=== PATIENT | female | born 1970 | race African-American/Black ===

== ENCOUNTER 2016-07-14 16:05 | Emergency (ER) | payer OTHER ==
[~2016-07-14] VITALS: Ht 162.6 cm; Wt 63.5 kg
[~2016-07-14 16:05] MED LIST: ALPRAZOLAM PO; AMOXICILLIN 50500 M1 PO; APAP/CODEI12 MG/5 ML PO; BACTRIM DS TAB1 EACH PO; CELEXA 20 MG TA20 M1 PO; CIPROFLOXACIN500 M1 PO; CLONAZEPAM 1 MG1 M1 PO; CLONAZEPAM PO; DESYREL50 MG; FLAGYL500 MG PO; FLEXERIL PO; FLONASE16 GM; HYCET 7.5 MG-3473 ML PO; HYDROCORTISONE TP; IBUPROFEN 600600 M1 PO; IBUPROFEN 800800 MG PO; LAMICTAL XR50 MG PO; LAMOTRIGINE100 MG PO; LATUDA40 MG PO; MUCINEX600 MG PO; NORCO 5-325 TA1 EACH PO; NORCO 7.5-3251 EACH PO; PHENERGAN 25 MG25 M1 PO; PREDNISONE50 MG PO; PROAIR HFA8.5 GM IH; PROVENTIL HFA6.7 G1 INH; REMERON; REMERON45 MG PO; RISPERDAL PO; RISPERDAL0.5 MG PO; SEROQUEL; TRAMADOL 50 MG50 MG PO; TRAZODONE 50 MG50 M1 OR; ULTRAM 50MG TAB50 MG PO; XANAX 0.5 MG0.5 MG PO; XANAX XR1 MG PO; ZPAK PO
[2016-07-14 16:40] LABS: URINE BILIRUBIN NEGATIVE (Negative); URINE BLOOD 1+ (Negative); URINE COLOR YELLOW; URINE GLUCOSE-RANDOM* NEGATIVE (Negative); URINE KETONES NEGATIVE (Negative); URINE LEUKOCYTES-REFLEX NEGATIVE (Negative); URINE PROTEIN (DIPSTICK) NEGATIVE (Negative); URINE UROBILINOGEN 0.2 E.U./dl (0.2-1.0)
[2016-07-14 16:47] LABS: CASTS None Seen /LPF (None Seen); CRYSTALS None Seen /LPF (None Seen); SQUAMOUS 4-10 Moderate /LPF (0-3); URINE RBC 3-10 Few /HPF (0-2); URINE WBC-REFLEX None Seen /HPF (0-5)
[2016-07-14 16:54] LABS: ABSOLUTE NEUTROPHILS 6.4 thou/uL (1.4-8.2); BASOPHILS 1.7 % (0.0-2.0); EOSINOPHILS 2.7 % (0.0-3.0); HEMATOCRIT 38.1 % (37.0-47.0); HEMOGLOBIN 12.8 gm/dL (12.0-15.0); LYMPHOCYTES 42.3 % (24.0-44.0); MCH 29.1 pg (26.0-34.0); MCHC 33.5 g/dL (28.0-37.0); MCV 86.9 fL (80.0-100.0); MONOCYTES 5.1 % (1.0-8.0); PLATELET COUNT 332 thou/uL (150-400); POLYS 48.2 % (36.0-66.0); RBC 4.39 mil/uL (4.20-5.00); WBC 13.3 thou/uL (4.0-11.0)
[2016-07-14 16:59] LABS: MANUAL DIFF NO
[2016-07-14 17:04] LABS: CALCIUM 8.8 mg/dL (8.5-10.1); CREATININE 0.8 mg/dL (0.6-1.0); POTASSIUM 3.8 mmol/L (3.5-5.1)
[2016-07-15 16:08] LABS: CHLAMYDIA TRACHOMATIS-PCR Negative (Negative); NEISSERIA GONORRHEA-PCR Negative (Negative)
== END 2016-07-14 18:35 | disposition home or self-care (01) ==
LOC: ER 16:05
PROVIDERS: Nurse Practitioner Family
DX: N30.10 Interstitial cystitis (chronic) without hematuria (principal); J45.909 Unspecified asthma, uncomplicated; F31.9 Bipolar disorder, unspecified; F17.210 Nicotine dependence, cigarettes, uncomplicated; Z90.89 Acquired absence of other organs; Z90.710 Acquired absence of both cervix and uterus; Z90.49 Acquired absence of other specified parts of digestive tract; Z88.6 Allergy status to analgesic agent

== ENCOUNTER 2016-09-05 12:43 | Emergency (ER) | payer OTHER ==
[~2016-09-05] VITALS: Ht 160 cm; Wt 65.8 kg
[2016-09-05 13:12] LABS: URINE BILIRUBIN NEGATIVE (Negative); URINE BLOOD 1+ (Negative); URINE COLOR YELLOW; URINE GLUCOSE-RANDOM* NEGATIVE (Negative); URINE KETONES NEGATIVE (Negative); URINE NITRITE NEGATIVE (Negative); URINE PROTEIN (DIPSTICK) NEGATIVE (Negative); URINE SPECIFIC GRAVITY 1.025 (1.003-1.035); URINE UROBILINOGEN 0.2 E.U./dl (0.2-1.0)
[2016-09-05 13:18] LABS: BACTERIA >30 Many /HPF (None Seen); CASTS None Seen /LPF (None Seen); CRYSTALS None Seen /LPF (None Seen); SQUAMOUS 4-10 Moderate /LPF (0-3); URINE RBC 3-10 Few /HPF (0-2); URINE WBC None Seen /HPF (0-5)
[2016-09-05] MEDS ORDERED: NORCO 5-325 TA1 EACH PO (13:22)
== END 2016-09-05 13:53 | disposition home or self-care (01) ==
LOC: ER 12:43
PROVIDERS: Emergency Medicine
DX: N30.10 Interstitial cystitis (chronic) without hematuria (principal); J45.909 Unspecified asthma, uncomplicated; F31.9 Bipolar disorder, unspecified; Z90.49 Acquired absence of other specified parts of digestive tract; Z90.710 Acquired absence of both cervix and uterus; F17.210 Nicotine dependence, cigarettes, uncomplicated; Z88.8 Allergy status to other drugs, medicaments and biological substances

== ENCOUNTER 2016-09-19 11:37 | Emergency (ER) | payer OTHER ==
[~2016-09-19] VITALS: Ht 162.6 cm; Wt 68.0 kg
[2016-09-19 12:01] LABS: URINE BILIRUBIN NEGATIVE (Negative); URINE BLOOD NEGATIVE (Negative); URINE GLUCOSE-RANDOM* NEGATIVE (Negative); URINE KETONES NEGATIVE (Negative); URINE NITRITE NEGATIVE (Negative); URINE PROTEIN (DIPSTICK) NEGATIVE (Negative); URINE UROBILINOGEN 0.2 E.U./dl (0.2-1.0)
[2016-09-19 12:07] LABS: URINE COLOR GREEN
== END 2016-09-19 12:13 | disposition home or self-care (01) ==
LOC: ER 11:37
PROVIDERS: Emergency Medicine
DX: N30.10 Interstitial cystitis (chronic) without hematuria (principal); J45.909 Unspecified asthma, uncomplicated; F31.9 Bipolar disorder, unspecified; F17.210 Nicotine dependence, cigarettes, uncomplicated; F15.10 Other stimulant abuse, uncomplicated; Z90.710 Acquired absence of both cervix and uterus; Z90.49 Acquired absence of other specified parts of digestive tract; Z88.6 Allergy status to analgesic agent

== ENCOUNTER 2016-12-09 18:37 | Emergency (ER) | payer OTHER ==
[~2016-12-09] VITALS: Ht 160 cm; Wt 63.5 kg
[2016-12-09 19:17] LABS: URINE BILIRUBIN NEGATIVE (Negative); URINE BLOOD TRACE (Negative); URINE COLOR YELLOW; URINE GLUCOSE-RANDOM* NEGATIVE (Negative); URINE KETONES NEGATIVE (Negative); URINE LEUKOCYTES-REFLEX NEGATIVE (Negative); URINE PROTEIN (DIPSTICK) NEGATIVE (Negative); URINE UROBILINOGEN 0.2 E.U./dl (0.2-1.0)
[2016-12-09 20:18] LABS: ABSOLUTE NEUTROPHILS 4.9 thou/uL (1.4-8.2); BASOPHILS 1.1 % (0.0-2.0); EOSINOPHILS 2.6 % (0.0-3.0); HEMATOCRIT 38.8 % (37.0-47.0); HEMOGLOBIN 12.9 gm/dL (12.0-15.0); LYMPHOCYTES 46.7 % (24.0-44.0); MCH 29.2 pg (26.0-34.0); MCHC 33.3 g/dL (28.0-37.0); MCV 87.8 fL (80.0-100.0); MONOCYTES 6.1 % (1.0-8.0); PLATELET COUNT 301 thou/uL (150-400); POLYS 43.5 % (36.0-66.0); RBC 4.42 mil/uL (4.20-5.00); RDW 14.3 % (10.5-14.5); WBC 11.3 thou/uL (4.0-11.0)
[2016-12-09 20:19] LABS: MANUAL DIFF NO
[2016-12-09 20:24] LABS: CREATININE 0.7 mg/dL (0.6-1.0); POTASSIUM 4.8 mmol/L (3.5-5.1)
[2016-12-09 20:30] LABS: ALBUMIN 3.7 g/dL (3.4-5.0); TOTAL BILIRUBIN 0.4 mg/dL (<0.1-1.0); TOTAL PROTEIN 7.5 g/dL (6.4-8.2)
[2016-12-09] MEDS ORDERED: ZOFRAN ODT4 M1 PO (20:33)
[2016-12-09] MEDS ORDERED: HYDROCODONE-AP1 EAC6 PO (20:36)
== END 2016-12-09 21:05 | disposition home or self-care (01) ==
LOC: ER 18:37
PROVIDERS: Physician Assistant
DX: N30.10 Interstitial cystitis (chronic) without hematuria (principal); J45.909 Unspecified asthma, uncomplicated; F31.9 Bipolar disorder, unspecified; F17.210 Nicotine dependence, cigarettes, uncomplicated; Z90.710 Acquired absence of both cervix and uterus; Z88.6 Allergy status to analgesic agent

== ENCOUNTER 2020-03-05 15:09 | Emergency (ER) | payer OTHER ==
[~2020-03-05] VITALS: Ht 162.6 cm; Wt 81.7 kg
[~2020-03-05 15:09] MED LIST changes: +HYDROCODONE-AP1 EAC6 PO; +ZOFRAN ODT4 M1 PO
[2020-03-05 16:25] LABS: URINE BILIRUBIN NEGATIVE (Negative); URINE BLOOD 2+ (Negative); URINE COLOR YELLOW; URINE GLUCOSE-RANDOM* NEGATIVE (Negative); URINE KETONES NEGATIVE (Negative); URINE NITRITE-REFLEX NEGATIVE (Negative); URINE PROTEIN (DIPSTICK) NEGATIVE (Negative); URINE SPECIFIC GRAVITY >= 1.030 (1.005-1.035); URINE UROBILINOGEN 0.2 E.U./dl (0.2-1.0)
[2020-03-05 16:27] LABS: URINE CLARITY HAZY; URINE LEUKOCYTES-REFLEX 1+ (Negative)
[2020-03-05 16:34] LABS: SQUAMOUS 4-10 Moderate /LPF (0-3); URINE WBC-REFLEX 6-15 Few /HPF (0-5)
[2020-03-05 16:35] LABS: URINE RBC 3-10 Few /HPF (0-2)
[2020-03-05 16:36] LABS: CASTS None Seen /LPF (None Seen); CRYSTALS None Seen /LPF (None Seen)
[2020-03-05 18:24] LABS: ABSOLUTE NEUTROPHILS 6.5 thou/uL (1.4-8.2); BASOPHILS 1.3 % (0.0-2.0); HEMATOCRIT 39.7 % (37.0-47.0); HEMOGLOBIN 13.5 gm/dL (12.0-15.0); LYMPHOCYTES 37.9 % (24.0-44.0); MCH 29.4 pg (26.0-34.0); MCHC 33.9 g/dL (28.0-37.0); MCV 86.7 fL (80.0-100.0); MONOCYTES 5.3 % (1.0-8.0); PLATELET COUNT 322 thou/uL (150-400); POLYS 53.5 % (36.0-66.0); RBC 4.59 mil/uL (4.20-5.00); RDW 14.6 % (10.5-14.5); WBC 12.1 thou/uL (4.0-11.0)
[2020-03-05 18:46] LABS: CALCIUM 9.9 mg/dL (8.5-10.1); CREATININE 0.8 mg/dL (0.6-1.0); POTASSIUM 3.5 mmol/L (3.5-5.1)
[2020-03-05 18:48] LABS: ALBUMIN 3.9 g/dL (3.4-5.0); TOTAL BILIRUBIN 0.5 mg/dL (0.2-1.0); TOTAL PROTEIN 7.9 g/dL (6.4-8.2)
[2020-03-05] MEDS ORDERED: NORCO 7.5-3251 EACH PO (19:59)
[2020-03-05] MEDS ORDERED: PHENAZOPYRIDIN200 M2 PO (19:59)
[2020-03-05] MEDS ORDERED: BACTRIM DS TAB1 EACH PO (19:59)
[2020-03-05 20:22] VITALS: BP 124/75
== END 2020-03-05 20:22 | disposition home or self-care (01) ==
LOC: ER 15:09
PROVIDERS: Emergency Medicine; Physician Assistant
DX: N39.0 Urinary tract infection, site not specified (principal); J45.909 Unspecified asthma, uncomplicated; F17.210 Nicotine dependence, cigarettes, uncomplicated; Z90.49 Acquired absence of other specified parts of digestive tract; Z90.710 Acquired absence of both cervix and uterus; Z79.899 Other long term (current) drug therapy; Z88.6 Allergy status to analgesic agent

== ENCOUNTER 2020-04-24 12:25 | Emergency (ER) | payer OTHER ==
[~2020-04-24] VITALS: Ht 160 cm; Wt 72.6 kg
[~2020-04-24 12:25] MED LIST changes: +PHENAZOPYRIDIN200 M2 PO
[2020-04-24 13:01] LABS: ABSOLUTE NEUTROPHILS 5.7 thou/uL (1.4-8.2); BASOPHILS 1.4 % (0.0-2.0); EOSINOPHILS 1.5 % (0.0-3.0); HEMOGLOBIN 13.3 gm/dL (12.0-15.0); LYMPHOCYTES 40.5 % (24.0-44.0); MCH 29.2 pg (26.0-34.0); MCHC 33.2 g/dL (28.0-37.0); MCV 87.9 fL (80.0-100.0); MONOCYTES 4.6 % (1.0-8.0); PLATELET COUNT 369 thou/uL (150-400); RBC 4.55 mil/uL (4.20-5.00); RDW 15.2 % (10.5-14.5); WBC 10.9 thou/uL (4.0-11.0)
[2020-04-24 13:03] LABS: URINE BILIRUBIN NEGATIVE (Negative); URINE BLOOD 1+ (Negative); URINE CLARITY CLEAR; URINE COLOR YELLOW; URINE GLUCOSE-RANDOM* NEGATIVE (Negative); URINE KETONES NEGATIVE (Negative); URINE LEUKOCYTES-REFLEX NEGATIVE (Negative); URINE NITRITE-REFLEX NEGATIVE (Negative); URINE PROTEIN (DIPSTICK) NEGATIVE (Negative); URINE SPECIFIC GRAVITY <= 1.005 (1.005-1.035); URINE UROBILINOGEN 0.2 E.U./dl (0.2-1.0)
[2020-04-24 13:15] LABS: ANION GAP 13 mmol/L (7-16); BUN 6 mg/dL (7-18); CALCIUM 9.3 mg/dL (8.5-10.1); CHLORIDE 102 mmol/L (98-107); CO2 26 mmol/L (21-32); CREATININE 0.8 mg/dL (0.6-1.0); GLUCOSE 109 mg/dL (74-106); POTASSIUM 3.5 mmol/L (3.5-5.1); SODIUM 141 mmol/L (136-145)
[2020-04-24 13:16] LABS: SQUAMOUS 4-10 Moderate /LPF (0-3)
[2020-04-24 13:17] LABS: CASTS None Seen /LPF (None Seen); URINE RBC 3-10 Few /HPF (0-2); URINE WBC-REFLEX 0-5 Rare /HPF (0-5)
[2020-04-24 13:18] LABS: BACTERIA-REFLEX >30 Many /HPF (None Seen); CRYSTALS None Seen /LPF (None Seen)
[2020-04-24 13:25] LABS: SGOT 9 U/L (15-37); SGPT 18 U/L (14-59); TOTAL BILIRUBIN 0.3 mg/dL (0.2-1.0); TOTAL PROTEIN 8.1 g/dL (6.4-8.2); TROPONIN-I <0.06 ng/mL (<0.06)
[2020-04-24] MEDS ORDERED: ONDANSETRON HCL4 M2 PO (16:30)
[2020-04-24] MEDS ORDERED: HYDROCODON-ACE1 EAC7 PO (16:30)
[2020-04-24] MEDS ORDERED: KEFLEX500 M1 PO (16:30)
[2020-04-24 17:07] VITALS: BP 155/90
--- NOTE | 2020-04-25 07:26 | EKG ---
[place] [address] [facility] [place] [address] ELECTROCARDIOGRAM REPORT Name: CARLINAMANDA Room #: DEP Sosa#: [id number] Admission: 04/24/20 Attend Phys: Discharge: 04/24/20 Date of : 68 Report #: [id number] [facility] ED Test Date: 2020-04-24 Test Time: 12:30:47 Pat Name: AMANDA CARLIN Department: Room: Gender: F Channel Turner: casie : 1970 Requested By: Sandra Parisi Order Number: [id number] MD: Eusebio Maxwell Measurements Intervals [place] Rate: 96 P: 78 [place]: 134 QRS: 76 QRSD: 102 T: 59 QT: 371 QTc: 469 Interpretive Statements Sinus rhythm Probable left atrial enlargement Compared to ECG 12/05/2014 08:53:11 Sinus tachycardia no longer present Electronically Signed On 04-25-2020 7:25:58 [employer] MILLING MACHINE OPERATOR by Eusebio Maxwell [email or web address] <ELECTRONICALLY SIGNED> By: Eusebio Maxwell MD, [facility] 04/25/20 0725 1230 1230 Eusebio Maxwell MD, FACC /EPI
== END 2020-04-24 17:10 | disposition home or self-care (01) ==
LOC: ER 12:25
PROVIDERS: Physician Assistant
DX: R07.89 Other chest pain (principal); N39.0 Urinary tract infection, site not specified; J45.909 Unspecified asthma, uncomplicated; F17.210 Nicotine dependence, cigarettes, uncomplicated; Z90.49 Acquired absence of other specified parts of digestive tract; Z90.710 Acquired absence of both cervix and uterus; Z88.6 Allergy status to analgesic agent

== ENCOUNTER 2020-08-01 15:41 | Emergency (ER) | payer OTHER ==
[~2020-08-01] VITALS: Ht 160 cm; Wt 72.6 kg
[~2020-08-01 15:41] MED LIST changes: +HYDROCODON-ACE1 EAC7 PO; +KEFLEX500 M1 PO; +ONDANSETRON HCL4 M2 PO
[2020-08-01 16:43] LABS: URINE BILIRUBIN NEGATIVE (Negative); URINE BLOOD 1+ (Negative); URINE CLARITY CLEAR; URINE COLOR YELLOW; URINE GLUCOSE-RANDOM* NEGATIVE (Negative); URINE KETONES NEGATIVE (Negative); URINE LEUKOCYTES-REFLEX NEGATIVE (Negative); URINE NITRITE-REFLEX NEGATIVE (Negative); URINE PROTEIN (DIPSTICK) NEGATIVE (Negative); URINE UROBILINOGEN 0.2 E.U./dl (0.2-1.0)
[2020-08-01 17:05] LABS: SQUAMOUS 0-3 Few /LPF (0-3)
[2020-08-01 17:06] LABS: BACTERIA-REFLEX 1-9 Few /HPF (None Seen); CASTS None Seen /LPF (None Seen); CRYSTALS None Seen /LPF (None Seen); URINE RBC 1-2 Rare /HPF (NONE SEEN); URINE WBC-REFLEX 0-5 Rare /HPF (0-5)
[2020-08-01 18:12] LABS: ABSOLUTE NEUTROPHILS 6.1 thou/uL (1.4-8.2); BASOPHILS 1.1 % (0.0-2.0); HEMATOCRIT 39.7 % (37.0-47.0); LYMPHOCYTES 36.6 % (24.0-44.0); MCH 28.7 pg (26.0-34.0); MCHC 32.8 g/dL (28.0-37.0); MCV 87.8 fL (80.0-100.0); MONOCYTES 5.1 % (1.0-8.0); PLATELET COUNT 339 thou/uL (150-400); POLYS 55.2 % (36.0-66.0); RBC 4.53 mil/uL (4.20-5.00); RDW 14.7 % (10.5-14.5); WBC 11.1 thou/uL (4.0-11.0)
[2020-08-01 18:21] LABS: CALCIUM 9.5 mg/dL (8.5-10.1); CREATININE 0.7 mg/dL (0.6-1.0)
[2020-08-01 18:23] LABS: POTASSIUM 5.1 mmol/L (3.5-5.1)
[2020-08-01] MEDS ORDERED: CEPHALEXIN500 MG PO (18:50)
[2020-08-01] MEDS ORDERED: PHENAZOPYRIDIN200 M2 PO (18:50)
[2020-08-01] MEDS ORDERED: COLACE100 MG PO (18:51)
[2020-08-01 19:01] VITALS: BP 149/95
== END 2020-08-01 19:01 | disposition home or self-care (01) ==
LOC: ER 15:41
PROVIDERS: Nurse Practitioner
DX: N30.90 Cystitis, unspecified without hematuria (principal); K59.00 Constipation, unspecified; J45.909 Unspecified asthma, uncomplicated; F31.9 Bipolar disorder, unspecified; F17.210 Nicotine dependence, cigarettes, uncomplicated; Z90.711 Acquired absence of uterus with remaining cervical stump; Z90.49 Acquired absence of other specified parts of digestive tract; Z88.6 Allergy status to analgesic agent

== ENCOUNTER 2020-08-27 12:04 | Emergency (ER) | payer OTHER ==
[~2020-08-27] VITALS: Ht 160 cm; Wt 68.0 kg
[~2020-08-27 12:04] MED LIST changes: +CEPHALEXIN500 MG PO; +COLACE100 MG PO
[2020-08-27 13:16] LABS: URINE BILIRUBIN NEGATIVE (Negative); URINE BLOOD 1+ (Negative); URINE CLARITY CLEAR; URINE COLOR YELLOW; URINE GLUCOSE-RANDOM* NEGATIVE (Negative); URINE KETONES NEGATIVE (Negative); URINE LEUKOCYTES-REFLEX NEGATIVE (Negative); URINE PROTEIN (DIPSTICK) NEGATIVE (Negative); URINE SPECIFIC GRAVITY 1.015 (1.005-1.035)
[2020-08-27 13:19] LABS: URINE NITRITE-REFLEX POSITIVE (Negative)
[2020-08-27 14:08] LABS: CASTS None Seen /LPF (None Seen); CRYSTALS None Seen /LPF (None Seen); SQUAMOUS 4-10 Moderate /LPF (0-3); URINE RBC 3-10 Few /HPF (NONE SEEN); URINE WBC-REFLEX 0-5 Rare /HPF (0-5)
[2020-08-27 14:16] LABS: ABSOLUTE NEUTROPHILS 4.7 thou/uL (1.4-8.2); BASOPHILS 1.9 % (0.0-2.0); EOSINOPHILS 2.5 % (0.0-3.0); HEMATOCRIT 37.1 % (37.0-47.0); HEMOGLOBIN 12.3 gm/dL (12.0-15.0); LYMPHOCYTES 44.9 % (24.0-44.0); MCH 29.2 pg (26.0-34.0); MCHC 33.3 g/dL (28.0-37.0); MCV 87.8 fL (80.0-100.0); MONOCYTES 4.7 % (1.0-8.0); PLATELET COUNT 325 thou/uL (150-400); RBC 4.22 mil/uL (4.20-5.00); RDW 14.8 % (10.5-14.5); WBC 10.1 thou/uL (4.0-11.0)
[2020-08-27 14:37] LABS: ALBUMIN 3.5 g/dL (3.4-5.0); CALCIUM 8.8 mg/dL (8.5-10.1); CREATININE 0.7 mg/dL (0.6-1.0); POTASSIUM 3.8 mmol/L (3.5-5.1); TOTAL BILIRUBIN 0.2 mg/dL (0.2-1.0); TOTAL PROTEIN 7.1 g/dL (6.4-8.2)
[2020-08-27] MEDS ORDERED: CEPHALEXIN500 MG PO (15:31)
[2020-08-27] MEDS ORDERED: NORCO5 PO (15:31)
[2020-08-27] MEDS ORDERED: BACTRIM DS TAB1 EACH PO (16:15)
[2020-08-27 17:29] VITALS: BP 150/92
== END 2020-08-27 17:29 | disposition home or self-care (01) ==
LOC: ER 12:04
PROVIDERS: Physician Assistant
DX: N30.10 Interstitial cystitis (chronic) without hematuria (principal); J45.909 Unspecified asthma, uncomplicated; F17.210 Nicotine dependence, cigarettes, uncomplicated; Z88.6 Allergy status to analgesic agent; Z88.1 Allergy status to other antibiotic agents; Z90.710 Acquired absence of both cervix and uterus

== ENCOUNTER 2020-11-05 13:57 | Emergency (ER) | payer OTHER ==
[~2020-11-05] VITALS: Ht 160 cm; Wt 67.6 kg
[~2020-11-05 13:57] MED LIST changes: +NORCO5 PO
[2020-11-05 14:32] LABS: URINE BILIRUBIN NEGATIVE (Negative); URINE BLOOD 2+ (Negative); URINE CLARITY CLEAR; URINE COLOR YELLOW; URINE GLUCOSE-RANDOM* NEGATIVE (Negative); URINE KETONES NEGATIVE (Negative); URINE LEUKOCYTES-REFLEX NEGATIVE (Negative); URINE NITRITE-REFLEX NEGATIVE (Negative); URINE PROTEIN (DIPSTICK) NEGATIVE (Negative)
[2020-11-05 14:46] LABS: ABSOLUTE NEUTROPHILS 5.5 thou/uL (1.4-8.2); HEMATOCRIT 38.3 % (37.0-47.0); HEMOGLOBIN 12.8 gm/dL (12.0-15.0); LYMPHOCYTES 34.2 % (24.0-44.0); MCH 29.8 pg (26.0-34.0); MCHC 33.4 g/dL (28.0-37.0); MCV 89.2 fL (80.0-100.0); MONOCYTES 5.8 % (1.0-8.0); PLATELET COUNT 373 thou/uL (150-400); RBC 4.29 mil/uL (4.20-5.00); RDW 14.9 % (10.5-14.5); WBC 10.2 thou/uL (4.0-11.0)
[2020-11-05 14:48] LABS: BACTERIA-REFLEX >30 Many /HPF (None Seen); CASTS None Seen /LPF (None Seen); CRYSTALS None Seen /LPF (None Seen); SQUAMOUS >10 Many /LPF (0-3); URINE WBC-REFLEX 0-5 Rare /HPF (0-5)
[2020-11-05 15:01] LABS: ANION GAP 12 mmol/L (7-16); BUN 5 mg/dL (7-18); CALCIUM 8.9 mg/dL (8.5-10.1); CHLORIDE 106 mmol/L (98-107); CO2 23 mmol/L (21-32); CREATININE 0.8 mg/dL (0.6-1.0); GLUCOSE 104 mg/dL (74-106); POTASSIUM 3.8 mmol/L (3.5-5.1); SODIUM 141 mmol/L (136-145)
--- NOTE | 2020-11-05 15:05 | EKG ---
[place] [address] [facility] [place] [address] ELECTROCARDIOGRAM REPORT Name: AMANDA CARLIN Room #: [facility].R.#: [id number] Admission: Attend Phys: Discharge: Date of : 68 Report #: [id number] [facility] ED Test Date: 2020-11-05 Test Time: 14:08:34 Pat Name: AMANDA CARLIN Department: Room: Gender: F Ex Assistant/Program Director: : 1970 Requested By: Monty Simmons Order Number: [id number] MD: Eusebio Maxwell Measurements Intervals [place] Rate: 82 P: 66 [place]: 145 QRS: 60 QRSD: 109 T: 59 QT: 359 QTc: 420 Interpretive Statements Sinus rhythm Probable left atrial enlargement Baseline wander in lead(s) I Compared to ECG 04/24/2020 12:30:47 No significant changes Electronically Signed On 11-05-2020 15:05:04 CDT by Eusebio Maxwell [email or web address] <ELECTRONICALLY SIGNED> By: Eusebio Maxwell MD, [facility] 11/05/20 1505 1408 1408 Eusebio Maxwell MD, FACC /EPI
[2020-11-05 15:11] LABS: ALBUMIN 3.5 g/dL (3.4-5.0); LIPASE 159 U/L (73-393); SGOT 24 U/L (15-37); SGPT 34 U/L (30-65); TOTAL BILIRUBIN 0.4 mg/dL (0.2-1.0); TOTAL PROTEIN 7.5 g/dL (6.4-8.2); TROPONIN-I <0.06 ng/mL (<0.06)
[2020-11-05] MEDS ORDERED: ZOFRAN ODT4 MG PO (15:51)
[2020-11-05] MEDS ORDERED: PYRIDIUM200 MG PO (15:51)
[2020-11-05] MEDS ORDERED: NORCO 10-325 T1 EACH PO (15:51)
[2020-11-05] MEDS ORDERED: LEVAQUIN 500 M500 MG PO (15:51)
[2020-11-05 17:08] VITALS: BP 129/87
== END 2020-11-05 17:10 | disposition home or self-care (01) ==
LOC: ER 13:57
PROVIDERS: Emergency Medicine
DX: N39.0 Urinary tract infection, site not specified (principal); R07.89 Other chest pain; J45.909 Unspecified asthma, uncomplicated; F31.9 Bipolar disorder, unspecified; F17.210 Nicotine dependence, cigarettes, uncomplicated; Z90.710 Acquired absence of both cervix and uterus; Z90.49 Acquired absence of other specified parts of digestive tract; Z79.891 Long term (current) use of opiate analgesic; Z79.899 Other long term (current) drug therapy; Z88.8 Allergy status to other drugs, medicaments and biological substances; Z88.6 Allergy status to analgesic agent; Z88.5 Allergy status to narcotic agent

== ENCOUNTER 2021-02-17 10:44 | Emergency (ER) | payer OTHER ==
[~2021-02-17] VITALS: Ht 162.6 cm; Wt 70.3 kg
[~2021-02-17 10:44] MED LIST changes: +LEVAQUIN 500 M500 MG PO; +NORCO 10-325 T1 EACH PO; +PYRIDIUM200 MG PO; +ZOFRAN ODT4 MG PO
[2021-02-17] MEDS ORDERED: PROAIR HFA8.5 GM INH ×3 (12:06→12:48)
[2021-02-17] MEDS ORDERED: NEBULIZER MISCELL ×3 (12:06→12:48)
[2021-02-17] MEDS ORDERED: PREDNISONE 20 M20 MG PO ×2 (12:06→12:48)
[2021-02-17] MEDS ORDERED: ALBUTEROL2.5 MG/31 INH ×3 (12:06→12:48)
[2021-02-17] MEDS ORDERED: GUAIFENESIN-CO473 ML PO ×3 (12:06→12:50)
[2021-02-17 12:16] VITALS: BP 129/84
[2021-02-17] MEDS ORDERED: NORCO 10-325 T1 EACH PO (12:45)
--- NOTE | 2021-02-18 07:26 | EKG ---
[place] [address] [place] [facility] [place] [address] ELECTROCARDIOGRAM REPORT Name: RAEGANYOLIART ANGLIN Room #: [facility]P [id number] Admission: 02/17/21 Attend Phys: Discharge: 02/17/21 Date of : 68 Report #: [id number] [facility] ED Test Date: 2021-02-17 Test Time: 10:51:42 Pat Name: AMANDA CARLIN Department: Room: Gender: F Manager Express: MARCELA : 1970 Requested By: Monty Simmons Order Number: [id number] MD: Eusebio Maxwell Measurements Intervals [place] Rate: 86 P: 68 [place]: 151 QRS: 55 QRSD: 93 T: 52 QT: 374 QTc: 448 Interpretive Statements Sinus rhythm Probable left atrial enlargement Compared to ECG 11/05/2020 14:08:34 No significant changes Electronically Signed On 02-18-2021 7:25:53 AUTO SERVICE MECHANIC by Eusebio Maxwell [email or web address] <ELECTRONICALLY SIGNED> By: Eusebio Maxwell MD, [facility] 02/18/21 0725 1051 1051 Eusebio Maxwell MD, FACC /EPI
== END 2021-02-17 12:17 | disposition home or self-care (01) ==
LOC: ER 10:44
DX: J06.9 Acute upper respiratory infection, unspecified (principal); Z20.822 Contact with and (suspected) exposure to COVID-19; R06.02 Shortness of breath; J45.909 Unspecified asthma, uncomplicated; F31.9 Bipolar disorder, unspecified; F17.210 Nicotine dependence, cigarettes, uncomplicated; Z90.710 Acquired absence of both cervix and uterus; Z90.49 Acquired absence of other specified parts of digestive tract; Z90.89 Acquired absence of other organs; Z79.891 Long term (current) use of opiate analgesic; Z79.899 Other long term (current) drug therapy; Z79.1 Long term (current) use of non-steroidal anti-inflammatories (NSAID); Z88.5 Allergy status to narcotic agent; Z88.1 Allergy status to other antibiotic agents; Z88.6 Allergy status to analgesic agent

== ENCOUNTER 2021-03-12 11:24 | Emergency (ER) | payer OTHER ==
[~2021-03-12] VITALS: Ht 162.6 cm; Wt 72.6 kg
[~2021-03-12 11:24] MED LIST changes: +ALBUTEROL2.5 MG/31 INH; +GUAIFENESIN-CO473 ML PO; +NEBULIZER MISCELL; +PREDNISONE 20 M20 MG PO; +PROAIR HFA8.5 GM INH
[2021-03-12 11:27] VITALS: BP 126/94
[2021-03-12 12:29] LABS: URINE BILIRUBIN NEGATIVE (Negative); URINE BLOOD 1+ (Negative); URINE CLARITY CLEAR; URINE COLOR YELLOW; URINE GLUCOSE-RANDOM* NEGATIVE (Negative); URINE KETONES NEGATIVE (Negative); URINE LEUKOCYTES-REFLEX NEGATIVE (Negative); URINE NITRITE-REFLEX NEGATIVE (Negative); URINE PROTEIN (DIPSTICK) NEGATIVE (Negative); URINE SPECIFIC GRAVITY 1.015 (1.005-1.035); URINE UROBILINOGEN 0.2 E.U./dl (0.2-1.0)
[2021-03-12 12:42] LABS: CASTS None Seen /LPF (None Seen); SQUAMOUS 4-10 Moderate /LPF (0-3)
[2021-03-12 12:43] LABS: BACTERIA-REFLEX None Seen /HPF (None Seen); CRYSTALS None Seen /LPF (None Seen); URINE RBC 1-2 Rare /HPF (NONE SEEN); URINE WBC-REFLEX None Seen /HPF (0-5)
[2021-03-12] MEDS ORDERED: ZPAK PO (13:27)
[2021-03-12] MEDS ORDERED: TESSALON PERLE100 MG PO (13:27)
== END 2021-03-12 13:32 | disposition home or self-care (01) ==
LOC: ER 11:24
PROVIDERS: Nurse Practitioner; Student in an Organized Health Care Education/Training Program
DX: J06.9 Acute upper respiratory infection, unspecified (principal); Z20.822 Contact with and (suspected) exposure to COVID-19; J45.909 Unspecified asthma, uncomplicated; F17.210 Nicotine dependence, cigarettes, uncomplicated; F12.90 Cannabis use, unspecified, uncomplicated; Z88.6 Allergy status to analgesic agent; Z88.1 Allergy status to other antibiotic agents; Z79.899 Other long term (current) drug therapy; Z90.710 Acquired absence of both cervix and uterus